=== PATIENT | female | born 1935 | race Caucasian/White ===

== ENCOUNTER → 2017-03-23 | Outpatient (CLI) | payer OTHER ==
[~2017-03-23] MED LIST: ACE325 PO; ALB0.5 INH; ALBU8.5H IH; AMLO-1 PO; AMLO-101 PO; BENA1TAB58 PO; BENA20TA62 PO; BENZ100C4 PO; CHOL10005 PO; CIP500 PO; CLOB15OI16 TP; CYCL1DRO6 OP; DICL-190 PO; DUL30 PO; DULO30CA6 PO; ESC10 PO; FLU10 PO; FLUO-201 PO; HCTZ25 PO; HYDR-385 PO; HYDR12.558 PO; IBU200 PO; IBUP-1618 PO; LORA-630 PO; OMEG-87 PO; OMEG-96 PO; OMEP-137 PO; ONDA4TAB9 PO; ONDA4TAB97 PO; PAN40 PO; POLY17PO PO; POTA-23 PO; POTA20PA10 PO; SULF-198 PO; TOLT4CAP13 PO; TRA50 PO; TRAM-420 PO; TRAZ-156 PO; TRIA15CR40 TP; ZOLP-350 PO; ZOLP-360 PO; [UNRECOGNIZED DRUG - CODE] PO
[2017-03-23 11:53] LABS: PLATELET COUNT, AUTOMATED 242 K/uL (150-450)
--- NOTE | 2017-03-23 13:50 | RADIOLOGY IMAGING REPORT ---
FACILITY: [facility] - [place] PATIENT NAME: Stacey Elliott : 1935 MR: [id number] V: [id number] EXAM DATE: ORDERING PHYSICIAN: TOBIN BACON TECHNOLOGIST: Location: [facility] Patient: Stacey Elliott : 1935 Visit/Account:[id number] Date of Sevice: 03/23/2017 SOFT TISSUE NON-SPECIFIC HISTORY: Drainage at skin surface COMPARISON: None FINDINGS: A high frequency ultrasound transducer was used to evaluate the abdominal wall. Thin tract of fluid from the skin surface extending to a subcutaneous 1 cm collection with moderate s urrounding hypervascularity and edema. IMPRESSION: 1. Thin tract of fluid from the skin surface connecting to a subcutaneous 1 cm fluid collection jorje rning for a tiny abscess. Report Dictated By: Yoni Vaughan MD at 03/23/2017 1:39 PM Report E-Signed By: Yoni Vaughan MD at 03/23/2017 1:47 PM WSN:[id number]
== END ==
LOC: LAB 11:35
PROVIDERS: ATTEND Internal Medicine
DX: R22.2 Localized swelling, mass and lump, trunk (principal); L03.90 Cellulitis, unspecified; L29.9 Pruritus, unspecified; I10 Essential (primary) hypertension; E55.9 Vitamin D deficiency, unspecified
CPT/HCPCS: 36415; 76999; 82040; 82247; 82306; 82310; 82374; 82435; 82565; 82947; 84075; 84132; 84155; 84295; 84450; 84460; 84520; 85025; 85651; 86140

== ENCOUNTER 2017-03-29 08:59 | Outpatient (RCR) | payer OTHER ==
[2017-03-23 14:35] VITALS: BP 143/79
[2017-03-23] MEDS: LIDOCAINE/SOD BICARB 8.4% SYR ID PRN (14:52)
[2017-03-23] MEDS: SODIUM CHLORIDE 0.9% IVPB SCH (14:52)
[2017-03-23] MEDS: ERTAPENEM IVPB SCH (14:52)
[2017-03-24] MEDS: ERTAPENEM IVPB SCH (08:54)
[2017-03-24] MEDS: SODIUM CHLORIDE 0.9% IVPB SCH (08:54)
[2017-03-24 09:32] VITALS: BP 147/81
[2017-03-25 09:08] VITALS: BP 124/72
[2017-03-25] MEDS: ERTAPENEM IVPB SCH (09:21)
[2017-03-25] MEDS: SODIUM CHLORIDE 0.9% IVPB SCH (09:21)
[2017-03-26] MEDS: ERTAPENEM IVPB SCH (08:57)
[2017-03-26] MEDS: SODIUM CHLORIDE 0.9% IVPB SCH (08:57)
[2017-03-26 09:00] VITALS: BP 134/75
[2017-03-26] MEDS: LIDOCAINE/SOD BICARB 8.4% SYR ID PRN (09:22)
[2017-03-27] MEDS: SODIUM CHLORIDE 0.9% IVPB SCH (09:00)
[2017-03-27] MEDS: ERTAPENEM IVPB SCH (09:00)
[2017-03-27 09:03] VITALS: BP 146/87
[2017-03-28 09:02] VITALS: BP 121/87
[~2017-03-29 08:59] MED LIST changes: +DEXTROSE 5%(*) 100 ML BAG 100 ML IVPB PRN; +ERTAPENEM(*) 1 GM VIAL 1 GM in NS(*) 0.9% 100 ML BAG 100 ML IVPB ONE; +NS(*) 0.9% 100 ML BAG 100 ML IVPB PRN
[2017-03-29] MEDS ORDERED: ERTAPENEM IVPB SCH (09:00)
[2017-03-29] MEDS ORDERED: SODIUM CHLORIDE 0.9% IVPB SCH (09:00)
[2017-03-29] MEDS: LIDOCAINE/SOD BICARB 8.4% SYR ID PRN (09:19)
== END 2017-04-28 10:50 | disposition home or self-care (01) ==
LOC: SPU 08:59
PROVIDERS: ATTEND Internal Medicine
DX: L03.90 Cellulitis, unspecified (principal)
CPT/HCPCS: 96365; J1335; J7050

== ENCOUNTER 2017-07-30 15:59 | Emergency (ER) | payer MEDICARE, OTHER ==
[~2017-07-30 15:59] MED LIST changes: +AMLO-96 PO; +AZIT-17 PO; +BENZ200C15 PO; -DEXTROSE 5%(*) 100 ML BAG 100 ML IVPB PRN; +DICL-192 PO; -ERTAPENEM(*) 1 GM VIAL 1 GM in NS(*) 0.9% 100 ML BAG 100 ML IVPB ONE; +FLUT16SP19 NS; +HYDR10TA3 PO; +IPRA3AMP21 IH; -NS(*) 0.9% 100 ML BAG 100 ML IVPB PRN; +PRED20TA6 PO; +TOLT4CAP PO
[2017-07-30 16:03] VITALS: BP 160/84
--- NOTE | 2017-07-30 16:15 | ER Report ---
History and Physical Time Seen By : 16:10 Hx. of Stated Complaint: tongue stuck on the metal band around her tooth HPI/ROS CHIEF COMPLAINT: tongue stuck on my dental bridge/ sinus pain HISTORY OF PRESENT ILLNESS: Pt here for two things. States that she has been sick with maxillary sinus pressure/headache for about10 days. no fevers. Has had thick yellow/green and bloody nasal discharge. Pt went to pcp and was placed on flonase but states it has only helped "a little". Pt also came her today because her tongue is stuck on her wire that goes around her tooth on her dental bridge. REVIEW OF SYSTEMS: GEn: no fevers or chills HEENT: + facial pressure Respiratory: No cough, no dyspnea. Cardiovascular: No chest pain, no palpitations. Gastrointestinal: No vomiting, no abdominal pain. Neuro: + headache Allergies: Coded Allergies: cephalexin (Verified Allergy, Unknown, 07/30/17) doxycycline (Verified Allergy, Unknown, 07/30/17) Uncoded Allergies: SSRI (Allergy, Unknown, 10/08/16) Home Meds Active Scripts Azithromycin (Z-PACK) 250 Mg Tablet, 1 TAB PO QDAY, #6 DOSE-PACK 2 pills today then 1 pill each day until finished Prov:WANDA CHÁVEZ DO 07/30/17 Hydroxyzine Hcl (HYDROXYZINE HCL) 10 Mg Tablet, 1 TAB PO BID Y for itching, #60 TAB 3 Refills Prov:TOBIN BACON MD 06/16/17 Benazepril/Hydrochlorothiazide (BENAZEPRIL-HCTZ 20-12.5 MG TAB) 1 Each Tablet, 2 EACH PO QDAY, #180 TAB 4 Refills Prov:TOBIN BACON MD 06/10/17 Amlodipine Besylate (AMLODIPINE BESYLATE) 5 Mg Tablet, 1 TAB PO QDAY, #90 TAB 3 Refills Prov:TOBIN BACON MD 05/14/17 Fluticasone Prop 50 Mcg Ns (FLONASE 50 MCG NS) 16 Gm [place].susp, 2 SPRAYS NS QDAY, #1 BOT 3 Refills Prov:TOBIN BACON MD 05/11/17 Potassium Chloride (KLOR-CON 10) 10 Meq Tablet.er, 10 MEQ PO QODAY, #15 TAB 2 Refills Prov:TOBIN BACON MD 03/17/17 Duloxetine HCl (Duloxetine HCl) 30 Mg Capsule.dr, 1 CAP PO DAILY for 90 Days, # 90 CAP 4 Refills Prov:VERITO PAULSON MD 12/28/16 Reported Medications Diclofenac Sodium (DICLOFENAC SODIUM) 50 Mg Tablet.dr, 50 MG PO BID Y for pain, TAB 06/01/17 Tolterodine Tartrate (Tolterodine Tartrate ER) 4 Mg Cap.er.24h, 1 CAP PO QDAY Y for incontinence 05/14/17 Cholecalciferol (Vitamin D3) (VITAMIN D3) 1,000 Unit Tablet, 1 TAB PO DAILY, TAB 01/01/17 Triamcinolone Acetonide 0.1% Cr 15 Gm Tube (TRIAMCINOLONE ACETONIDE 0.1% CREAM) 15 Gm Cream..g., 1 TOSHA TP BID Y for ITCHING, TUBE 12/28/16 Higgins-3 Fatty Acids/Fish Oil (OMEGA 3 1,000 MG SOFTGEL) 1 Each Capsule, 2 EACH PO QDAY, CAPSULE 12/28/16 Cyclosporine (RESTASIS) 1 Each Droperette, 1 EACH OP 3XW 12/28/16 Albuterol Sulfate 90 Mcg/Act (PROAIR HFA 90 MCG/ACT) 8.5 Gm Hfa.aer.ad, 2 PUFF IH Q4-6H, INHALER 10/08/16 Omeprazole (OMEPRAZOLE) 20 Mg Tablet.dr, 1 TAB PO QDAY Y for HEARTBURN, TAB 10/08/16 Polyethylene Glycol (MIRALAX (OR EQUIV)) 17 Gm Powd, 17 GM PO QODAY 05/02/12 Past Medical/Surgical History Pmhx: shingles, cellulitis, htn Pshx: shabnam, hyster Reviewed Nurses Notes: Yes Old Medical Records Reviewed: Yes Hx Smoking: No Smoking Status: Never Smoker Hx Substance Use Disorder: No Hx Alcohol Use: Yes Constitutional Vital Sign - Last 24 Hours 07/30/17 16:03 Temp 99.5 Pulse 82 Resp 16 B/P (MAP) 160/84 Pulse Ox 90 O2 Delivery Room Air Physical Exam General Appearance: The patient is alert, has no immediate need for airway protection and no signs of toxicity. Eyes: Pupils equal and round no pallor or injection, EOMI ENT: no pharyngeal erythema or exudates, Mucous membranes are moist, TM are nl b/l, + swelling to nasal turbinates with purulent discharge, + sinus presure with palpation Respiratory: There are no retractions, lungs are clear to auscultation. Cardiovascular: Regular rate and rhythm. pulses are equal and symmetrical Gastrointestinal: Abdomen is soft and non tender, no masses, bowel sounds normal, no guarding, no rigidity or rebound Neurological: Cranial nerves II-XII grossly intact, no sensory or motor loss Skin: Warm and dry, no rashes. Musculoskeletal: Neck is supple non tender, no vertebral tenderness Extremities are nontender, non swollen and have full range of motion. DIFFERENTIAL DIAGNOSIS: After history and physical exam differential diagnosis was considered for sinusitis, allergic rhinitis Medical Decision Making ED Course/Re-evaluation ED Course With easly manipulation of her tongue was able to release the muscle from her dental bridge. Will start pt on abx due to length of time of symptoms and failure to improve with a week of flonase. Decision to Disposition Date: July 30, 2017 Decision to Disposition Time: 16:19 Depart Departure Latest Vital Signs Vital Signs Date Time Temp Pulse Resp B/P (MAP) Pulse Ox O2 Delivery O2 Flow Rate FiO2 07/30/17 16:03 99.5 82 16 160/84 90 Room Air Impression: Primary Impression: Tongue injury Additional Impression: Sinusitis Condition: Improved Disposition: HOME OR SELF-CARE Referrals: TOBIN BACON MD (PCP) 2 Days New Scripts Azithromycin (Z-PACK) 250 Mg Tablet 1 TAB PO QDAY, #6 DOSE-PACK 2 pills today then 1 pill each day until finished Prov: WANDA CHÁVEZ DO 07/30/17 Patient Instructions: Sinusitis (GEN) Additional Instructions: Continue you flonase daily. Zithromax two pills today then one pill once a day for 4 more days. This will help with your sinus infection. Follow up with your family doctor if not improving. Problem Qualifiers Primary Impression: Tongue injury Encounter type: initial encounter Qualified Codes: S09.93XA - Unspecified injury of face, initial encounter Additional Impression: Sinusitis Sinusitis location: maxillary Chronicity: acute Recurrence: non-recurrent Qualified Codes: J01.00 - Acute maxillary sinusitis, unspecified WANDA CHÁVEZ DO July 30, 2017 16:15
[2017-07-30] MEDS ORDERED: AZIT-17 PO (16:19)
== END 2017-07-30 16:27 | disposition home or self-care (01) ==
LOC: ER 16:01
DX: S09.93XA Unspecified injury of face, initial encounter (principal); J01.00 Acute maxillary sinusitis, unspecified
CPT/HCPCS: 99281

== ENCOUNTER → 2017-09-03 | Outpatient (CLI) | payer MEDICARE, OTHER ==
[~2017-09-03] MED LIST changes: +ALBU2.5V36 INH; +NAPR500T31 PO
--- NOTE | 2017-09-03 11:33 | RADIOLOGY IMAGING REPORT ---
[place] [facility] [place]: Stacey Elliott : 1935 MR: [id number] V: [id number] EXAM DATE: ORDERING PHYSICIAN: HARSHA MALHOTRA TECHNOLOGIST: Location: [facility] [place] Patient: Stacey Elliott : 1935 Visit/Account:[id number] Date of Sevice: 09/03/2017 CHEST PA AND LAT INDICATION: Cough COMPARISON: December 04, 2010 FINDINGS: The cardiac silhouette is normal in size. No pneumothorax. Clear lungs. Normal osseous st ructures. No pleural fluid. IMPRESSION: No acute finding. Report Dictated By: Griffin Wagner MD at 09/03/2017 11:28 AM Report E-Signed By: Griffin Wagner MD at 09/03/2017 11:30 AM WSN:[id number]
== END ==
LOC: RAD 10:35
PROVIDERS: ATTEND Nurse Practitioner Primary Care
DX: R05 Cough (principal)
CPT/HCPCS: 71046

== ENCOUNTER → 2018-01-10 | Outpatient (CLI) | payer MEDICARE, OTHER ==
[~2018-01-10] MED LIST changes: +AMLO-111 PO; -AMLO-96 PO; +DULO60CA56 PO; +IPRA3AMP10 IH; -IPRA3AMP21 IH; -TRAZ-156 PO; +TRAZ50TA34 PO
[2018-01-10 10:36] LABS: PLATELET COUNT, AUTOMATED 245 K/uL (150-450)
[2018-01-10 10:44] LABS: LDL CHOLESTEROL 126 mg/dl
== END ==
LOC: LAB 10:08
PROVIDERS: ATTEND Internal Medicine
DX: R06.02 Shortness of breath (principal)
CPT/HCPCS: 36415; 82040; 82247; 82306; 82310; 82374; 82435; 82465; 82565; 82947; 83718; 84075; 84132; 84155; 84295; 84443; 84450; 84460; 84478; 84520; 84550; 85025

== ENCOUNTER → 2018-01-18 | Outpatient (CLI) | payer MEDICARE, OTHER | LOC: RESP 01:33 | PROVIDERS: ATTEND Internal Medicine | DX: J44.9 Chronic obstructive pulmonary disease, unspecified (principal) | CPT/HCPCS: 94060; 94726; 94729 ==

== ENCOUNTER → 2018-01-26 | Outpatient (CLI) | payer MEDICARE, OTHER ==
[~2018-01-26] MED LIST changes: +NEBU1EAC38 NEB
--- NOTE | 2018-01-26 14:03 | RADIOLOGY IMAGING REPORT ---
[place] [facility] [place] NAME: Stacey Elliott : 1935 MR: [id number] V: [id number] EXAM DATE: ORDERING PHYSICIAN: HARSHA MALHOTRA TECHNOLOGIST: Location: [facility] - [place], [place] Patient: Stacey Elliott : 1935 Visit/Account:[id number] Date of Sevice: 01/26/2018 2 VIEWS CHEST INDICATION: Cough, congestion and wheezing. COMPARISON: 09/03/2017. FINDINGS: Cardiomediastinal silhouette and pulmonary vessels within normal limits. There is no focal infiltrate or lobar consolidation. There is no pneumothorax or pleural effusion. Mild scarring seen left lower lobe. No nodule. Upper abdomen is unremarkable. No acute bony abnormality. IMPRESSION: 1. No acute cardiopulmonary process. Report Dictated By: Akash Garrison at 01/26/2018 1:57 PM Report E-Signed By: Akash Garrison at 01/26/2018 1:59 PM WSN:[id number]
== END ==
LOC: RAD 13:13
PROVIDERS: ATTEND Nurse Practitioner Primary Care
DX: R05 Cough (principal); R06.02 Shortness of breath; R06.2 Wheezing; J44.9 Chronic obstructive pulmonary disease, unspecified
CPT/HCPCS: 71046